=== PATIENT | male | born 1960 | race African-American/Black ===

== ENCOUNTER 2021-01-18 15:18 | Inpatient (IN) | payer OTHER ==
[2021-01-18] MEDS ORDERED: IBUPROFEN 400 MG TABLET (FP) PO PRN (18:35)
[2021-01-18] MEDS ORDERED: ACETAMINOPHEN 325 MG TABLET (FP) PO PRN ×2 (18:35)
[2021-01-18] MEDS ORDERED: chlordiazePOXIDE HCL 25 MG CAPSULE PO PRN (18:35)
[2021-01-18] MEDS ORDERED: MAGNESIUM HYDROX 2400MG/30ML ORAL SUSPENSION 30 ML CUP PO PRN (18:35)
[2021-01-18] MEDS ORDERED: BISMUTH SUBSALICYLATE 524 MG/30 ML UD PO PRN (18:35)
[2021-01-18] MEDS ORDERED: NICOTINE POLACRILEX 2 MG GUM BUC PRN (18:35)
[2021-01-18] MEDS ORDERED: MENTHOL/PHENOL 1 EACH UD MM PRN (18:35)
[2021-01-18] MEDS ORDERED: ONDANSETRON *ODT* 4 MG TABLET SL PRN (18:35)
[2021-01-18] MEDS ORDERED: METHOCARBAMOL 500 MG TABLET PO PRN (18:35)
[2021-01-18] MEDS ORDERED: MAGNESIUM CITRATE 300 ML BOTTLE PO PRN (18:35)
[2021-01-18] MEDS ORDERED: MAG HYDROX/AL HYDROX/SIMETH 30 ML UNIT-DOSE CUP PO PRN (18:35)
[2021-01-18 18:54] VITALS: BMI 23.6
[2021-01-18] MEDS ORDERED: hydrOXYzine PAMOATE 25 MG CAPSULE (FP) PO SCH (22:00)
[2021-01-18] MEDS: MELATONIN 5 MG TABLETS PO SCH (23:25)
[2021-01-18] MEDS: THIAMINE HCL 100 MG TABLET (FP) PO SCH (23:25)
[2021-01-18] MEDS: chlordiazePOXIDE HCL 25 MG CAPSULE PO SCH (23:26)
[2021-01-19] MEDS: chlordiazePOXIDE HCL 25 MG CAPSULE PO SCH ×4 (06:21→22:39)
[2021-01-19] MEDS ORDERED: METHADONE HCL 10 MG TABLET PO ONE (08:55)
[2021-01-19] MEDS ORDERED: METHADONE 80 MG, METHADONE 30 MG PO ONE (09:15)
[2021-01-19] MEDS ORDERED: METHADONE HCL 10 MG TABLET ONE (09:33)
[2021-01-19] MEDS ORDERED: METHADONE HCL 40 MG DISPERSABLE TABLET ONE (09:34)
[2021-01-19] MEDS: PRENATAL VITAMINS W/ FOLIC ACID TABLET (FP) PO SCH (10:14)
[2021-01-19 12:05] LABS: HEMATOCRIT 36.1 % (35.4-49); HEMOGLOBIN 11.9 GM/dL (11.7-16.9); MCH 32.9 pg (25.7-33.7); MCHC 33.1 g/dl (32.0-35.9); MEAN CELL VOLUME 99.4 fl (80-96); MEAN PLT VOLUME 8.9 fl (7.5-11.1); PLATELET COUNT 254 K/MM3 (134-434); RBC 3.63 M/mm3 (4.00-5.60); RDW 12.9 % (11.9-15.9); WHITE BLOOD COUNT 5.1 K/mm3 (4.0-10.0)
[2021-01-19 12:12] LABS: POTASSIUM 4.2 mmol/L (3.5-5.1)
[2021-01-19 12:16] LABS: CALCIUM 8.9 mg/dL (8.5-10.1)
[2021-01-19 12:17] LABS: BLOOD UREA NITROGEN 21.4 mg/dL (7-18)
[2021-01-19 12:20] LABS: CREATININE 1.1 mg/dL (0.55-1.3)
[2021-01-19 12:21] LABS: BILIRUBIN,TOTAL 0.7 mg/dL (0.2-1); TOT PROT 6.5 g/dl (6.4-8.2)
[2021-01-19 13:31] LABS: HIV INTERPRETATION NEGATIVE (NEGATIVE)
[2021-01-19] MEDS: THIAMINE HCL 100 MG TABLET (FP) PO SCH (22:38)
[2021-01-19] MEDS: QUEtiapine FUMARATE 50 MG TABLET PO SCH (22:38)
[2021-01-19] MEDS: MELATONIN 5 MG TABLETS PO SCH (22:38)
[2021-01-20] MEDS ORDERED: METHADONE HCL 10 MG TABLET ONE (04:15)
[2021-01-20] MEDS ORDERED: METHADONE HCL 40 MG DISPERSABLE TABLET ONE (04:15)
[2021-01-20] MEDS: METHADONE 80 MG, METHADONE 30 MG PO SCH (05:31)
[2021-01-20] MEDS: chlordiazePOXIDE HCL 25 MG CAPSULE PO SCH ×4 (05:35→21:59)
[2021-01-20] MEDS ORDERED: METHADONE HCL 40 MG DISPERSABLE TABLET PO SCH (06:00)
[2021-01-20] MEDS ORDERED: GENTAMICIN SO4 80 MG/2 ML VIAL ONE (07:24)
[2021-01-20] MEDS ORDERED: THROMBIN (BOVINE) 5,000 UNIT VIAL TP ONE (07:24)
[2021-01-20] MEDS ORDERED: LIDOCAINE HCL 1% EPINEPHRINE 1:200,000 30 ML VIAL (PF) ONE (07:24)
[2021-01-20] MEDS ORDERED: VANCOMYCIN 1,000 MG VIAL (RESTRICTED TO ID ONLY) ONE (07:48)
[2021-01-20] MEDS ORDERED: BENZOIN/ALOE VERA/STORAX/TOLU 58 ML BOTTLE ONE (08:10)
[2021-01-20] MEDS: PRENATAL VITAMINS W/ FOLIC ACID TABLET (FP) PO SCH (10:12)
[2021-01-20] MEDS: QUEtiapine FUMARATE 50 MG TABLET PO SCH (21:59)
[2021-01-20] MEDS: THIAMINE HCL 100 MG TABLET (FP) PO SCH (21:59)
[2021-01-20] MEDS: MELATONIN 5 MG TABLETS PO SCH (21:59)
[2021-01-21] MEDS ORDERED: chlordiazePOXIDE HCL 10 MG CAPSULE PO PRN
[2021-01-21] MEDS ORDERED: METHADONE HCL 10 MG TABLET ONE (04:45)
[2021-01-21] MEDS ORDERED: METHADONE HCL 40 MG DISPERSABLE TABLET ONE (04:45)
[2021-01-21] MEDS: METHADONE 80 MG, METHADONE 30 MG PO SCH (05:46)
[2021-01-21] MEDS: chlordiazePOXIDE HCL 10 MG CAPSULE PO SCH ×4 (05:47→22:14)
[2021-01-21] MEDS: PRENATAL VITAMINS W/ FOLIC ACID TABLET (FP) PO SCH (10:53)
[2021-01-21] MEDS: QUEtiapine FUMARATE 50 MG TABLET PO SCH (22:13)
[2021-01-21] MEDS: THIAMINE HCL 100 MG TABLET (FP) PO SCH (22:13)
[2021-01-21] MEDS: MELATONIN 5 MG TABLETS PO SCH (22:13)
[2021-01-22] MEDS ORDERED: METHADONE HCL 10 MG TABLET ONE (04:32)
[2021-01-22] MEDS ORDERED: METHADONE HCL 40 MG DISPERSABLE TABLET ONE (04:32)
[2021-01-22] MEDS: chlordiazePOXIDE HCL 10 MG CAPSULE PO SCH ×2 (05:35→18:43)
[2021-01-22] MEDS: METHADONE 80 MG, METHADONE 30 MG PO SCH (05:35)
[2021-01-22] MEDS: PRENATAL VITAMINS W/ FOLIC ACID TABLET (FP) PO SCH (11:42)
[2021-01-22] MEDS: THIAMINE HCL 100 MG TABLET (FP) PO SCH (21:47)
[2021-01-22] MEDS: QUEtiapine FUMARATE 50 MG TABLET PO SCH (21:47)
[2021-01-22] MEDS ORDERED: MASKS NR ONE (21:48)
[2021-01-22] MEDS: MELATONIN 5 MG TABLETS PO SCH (21:48)
[2021-01-23] MEDS ORDERED: METHADONE HCL 10 MG TABLET ONE (04:49)
[2021-01-23] MEDS ORDERED: METHADONE HCL 40 MG DISPERSABLE TABLET ONE (04:49)
[2021-01-23] MEDS ORDERED: chlordiazePOXIDE HCL 10 MG CAPSULE PO ONE (05:00)
[2021-01-23] MEDS: METHADONE 80 MG, METHADONE 30 MG PO SCH (05:10)
[2021-01-23] MEDS ORDERED: MASKS NR ONE (08:58)
[2021-01-23 09:00] VITALS: BP 109/68; PULSE 73; TEMP 97.1
[2021-01-23] MEDS: PRENATAL VITAMINS W/ FOLIC ACID TABLET (FP) PO SCH (09:27)
== END 2021-01-23 11:04 | disposition home or self-care (01) | DRG 897 ==
LOC: YASAS 15:18 → Y3N 22:10
PROVIDERS: ADMIT Allergy & Immunology; ATTEND Allergy & Immunology
PROC: HZ2ZZZZ Detoxification Services for Substance Abuse Treatment (ICD-10-PCS; principal; 2021-01-18)
DX: F10.230 Alcohol dependence with withdrawal, uncomplicated (principal); F14.20 Cocaine dependence, uncomplicated; F11.20 Opioid dependence, uncomplicated; F19.282 Other psychoactive substance dependence with psychoactive substance-induced sleep disorder; F19.24 Other psychoactive substance dependence with psychoactive substance-induced mood disorder; F31.9 Bipolar disorder, unspecified; I10 Essential (primary) hypertension; R79.89 Other specified abnormal findings of blood chemistry; Z98.890 Other specified postprocedural states; Z99.89 Dependence on other enabling machines and devices; Z59.0 Homelessness; Z56.0 Unemployment, unspecified
CPT/HCPCS: 36415; 71046-TC-FY; 80053; 84520; 85027; 86780; 87389; 93005; 93010; C9803; U0003